=== PATIENT | male | born 1970 | race Hispanic/Latino ===

== ENCOUNTER 2019-05-04 22:19 | Emergency (ER) | payer OTHER ==
--- NOTE | 2019-05-04 23:51 | RAD ---
RADIOGRAPH CHEST 1 VIEW: DATE: 05/04/2019 HISTORY: 48-year-old male with dyspnea FINDINGS: The thoracic aorta is tortuous and ectatic. There is no evidence of airspace density, cardiomegaly, p ulmonary edema, or pneumothorax. The lateral costophrenic angles are not effaced. Prominent interstitial markings, especially at lung bases. IMPRESSION: 1) No definitive acute pulmonary findings. 2) ectasia of thoracic aorta.
[2019-05-05 00:06] LABS: #Basophils 0.1 thou/uL (0.0-0.2); #Eosinphils 0.4 thou/uL (0.0-0.7); #Lymphocytes 2.5 thou/uL (1.20-3.40); #Monocytes 0.5 thou/uL (0.11-0.59); #Neutrophils 3.6 thou/uL (1.40-6.50); %Basophils 1.5 % (0.0-1.0); %Eosinophils 5.4 % (0.0-10.0); %Lymphocytes 35.3 % (21.0-51.0); %Monocytes 6.9 % (0.0-10.0); Hemoglobin 15.7 g/dL (14.0-18.0); Mean Corpuscular HGB CONC 36.2 g/dL (32.0-36.0); Mean Corpuscular Volume 93.9 fL (78.0-98.0); Mean Platelet Volume 8.3 fL (7.4-10.4); Platelet Count 198 thou/uL (130-400); RBC Distribution Width 12.4 % (11.5-14.5); Red Blood Cell (RBC) Count 4.61 mill/uL (4.70-6.10); White Blood Cell (WBC) Count 7.1 thou/uL (4.8-10.8)
[2019-05-05 00:48] LABS: Thyroid Stimulating Hormone 58.1827 uIU/mL (0.35-4.94)
[2019-05-05 00:59] LABS: ALT (SGPT) 57 U/L (8-55); AST (SGOT) 77 U/L (5-34); Albumin 4.5 g/dL (3.5-5.0); Alkaline Phosphatase 72 U/L (40-150); Anion Gap 19 mmol/L (10-20); BUN (Urea Nitrogen) 11 mg/dL (8.9-20.6); Bilirubin, Total 0.4 mg/dL (0.2-1.2); Calc. Creatinine Clearance 0 mL/min (70-130); Calcium 10.1 mg/dL (7.8-10.44); Carbon Dioxide 21 mmol/L (22-29); Chloride 101 mmol/L (98-107); Estimated GFR-MDRD 68; Globulin 3.6 g/dL (2.4-3.5); Glucose 111 mg/dL (70-105); Lipase 53 U/L (8-78); Potassium 3.8 mmol/L (3.5-5.1); Protein, Total 8.1 g/dL (6.0-8.3); Sodium 137 mmol/L (136-145)
[2019-05-05 03:25] LABS: Troponin I Less than 0.010 ng/mL (< 0.028)
[2019-05-05 03:56] LABS: Free T4 (Free Thyroxine) Less than 0.40 ng/dL (0.70-1.48)
--- NOTE | 2019-05-05 07:57 | CT ---
PRELIMINARY REPORT/[facility]/EMERGENCY AFTER HOURS PROCEDURE: EXAM: CT Angiography Chest With Contrast EXAM DATE/TIME: 05/05/2019 1:56 AM CLINICAL HISTORY: 48 years old, male; Dyspnea; Patient HX: 48 year old male presents to ED C/O 2 months of shortness of breath that has continued to get worse, reports for 1 week now patient has been experiencing non-pro ductive cough. Reports chest pain when patient coughs. TECHNIQUE: Imaging protocol: Computed tomographic angiography of the chest with intravenous contrast, including non-contrast images if performed. 3D rendering: MIP reconstructed images were created and reviewed. COMPARISON: No relevant prior studies available. FINDINGS: Pulmonary arteries: No pulmonary emboli. Aorta: Unremarkable. No aortic aneurysm. No aortic dissection. Lungs: Mild bibasilar atelectasis. Pleural space: Unremarkable. No pneumothorax. No pleural effusion. Heart: Unremarkable. No cardiomegaly. No pericardial effusion. Lymph nodes: Unremarkable. No enlarged lymph nodes. Bones/joints: Unremarkable. No acute fracture. Soft tissues: Unremarkable. IMPRESSION: No pulmonary emboli. Thank you for allowing us to participate in the care of your patient. Dictated and Authenticated by: John Gonzalez MD 05/05/2019 2:20 AM Central Time ([place] & [place]) FINAL REPORT CTA ANGIO CHEST: I agree with the preliminary report provided. No central or segmental pulmonary embolus demonstrated . POS: [facility]
[2019-05-05] MEDS ORDERED: ISOVUE-370 76%-LOCM 1 ML ONE (15:19)
== END 2019-05-05 03:50 | disposition home or self-care (01) ==
LOC: ERS 22:19
DX: R07.89 Other chest pain (principal); R06.02 Shortness of breath; E03.9 Hypothyroidism, unspecified; E78.5 Hyperlipidemia, unspecified
CPT/HCPCS: 36415; 71045; 71275; 80053; 83690; 83880; 84439; 84443; 84484; 85025; 85379; 93005; Q9966